=== PATIENT | female | born 1995 | race Hispanic/Latino ===

== ENCOUNTER 2017-03-08 12:53 | Emergency (ER) | payer OTHER ==
[2017-03-08 13:01] VITALS: BP 126/84; PULSE 90; RESP 19; TEMP 98.6; O2SAT 100
[2017-03-08] MEDS ORDERED: Absorbable Gelatin Sponge Size 12-7 ONE (13:24)
--- NOTE | 2017-03-08 13:34 | ED PDOC ---
Upper Extremity Pain/Injury Time Seen by Provider: 03/08/17 13:13 Chief Complaint (Nursing): Finger,Hand,&Wrist Chief Complaint (Provider): Finger, Hand &Wrist History Per: Patient History/Exam Limitations: no limitations Onset/Duration Of Symptoms: Days (x1day (Last night)) Current Symptoms Are (Timing): Still Present Additional Complaint(s): Tiffanie Nielson is a 22 year old female with no past medical history who presents to the ED accompanied by her family with a chief complaint of swelling from a nail bed injury. Associated symptoms include numbness and tingling. Patient reports she slammed her right 3rd digit on a metal door. Denies any active bleeding. Past Medical History Reviewed: Historical Data, Nursing Documentation, Vital Signs Vital Signs: Last Vital Signs Temp 98.6 F 03/08/17 12:58 Pulse 90 03/08/17 12:58 Resp 19 03/08/17 12:58 BP 126/84 03/08/17 12:58 Pulse Ox 100 03/08/17 12:58 - Medical History PMH: No Chronic Diseases - Surgical History Surgical History: No Surg Hx, Tonsillectomy - Family History Family History: States: Unknown Family Hx - Allergies Allergies/Adverse Reactions: Allergies Allergy/AdvReac Type Severity Reaction Status Date / Time No Known Allergies Allergy Verified 03/08/17 12:58 Review of Systems ROS Statement: Except As Marked, All Systems Reviewed And Found Negative Physical Exam - Reviewed Nursing Documentation Reviewed: Yes Vital Signs Reviewed: Yes - Physical Exam Appears: Positive for: Well, Non-toxic, No Acute Distress Head Exam: Positive for: ATRAUMATIC, NORMAL INSPECTION, NORMOCEPHALIC Skin: Positive for: Normal Color Eye Exam: Positive for: Normal appearance ENT: Positive for: Normal ENT Inspection Neck: Positive for: Normal Cardiovascular/Chest: Positive for: Regular Rate, Rhythm. Negative for: Murmur , Tachycardia Respiratory: Positive for: Normal Breath Sounds. Negative for: Wheezing, Respiratory Distress Extremity: Positive for: Swelling (Swelling proximal to the phalanx of the right hand on the 3rd digit.), Other (Acrylic nail. Has a bed nail injury) Neurologic/Psych: Positive for: Alert, Oriented - ECG O2 Sat by Pulse Oximetry: 100 (RA) Pulse Ox Interpretation: Normal - Radiology X-Ray: Interpreted by Pr X-Ray Interpretation: No Acute Disease Medical Decision Making Medical Decision Makin: Initial Impression: 22 year old female with a nail bed injury. Initial Plan: * X-ray * Nail removal * 2cc of normal saline * Lidocaine with out epinephrine * gel foam applied to nail advised not to wet nail bed x 2 d Patient was in agreement with nail being removed Scribe Attestation: Documented by Stephany Fuentes acting as a scribe for Shira Gasca PA-C. Provider Scribe Attestation: All medical record entries made by the Scribe were at my direction and personally dictated by me. I have reviewed the chart and agree that the record accurately reflects my personal performance of the history, physical exam, medical decision making, and the department course for this patient. I have also personally directed, reviewed, and agree with the discharge instructions and disposition. Disposition - Clinical Impression Clinical Impression: Nail bed injury - Patient ED Disposition Is Patient to be Admitted: No Counseled Patient/Family Regarding: Studies Performed, Diagnosis, Need For Followup - Disposition Disposition: Routine/Home Disposition Time: 14:01 Condition: STABLE Instructions: Toenail/Fingernail Removal (ED)
--- NOTE | 2017-03-08 13:36 | RAD ---
PROCEDURE: Right Hand Radiographs. HISTORY: trauma attn 3rd digit COMPARISON: None available. FINDINGS: BONES: No acute displaced fracture. JOINTS: No dislocation. SOFT TISSUES: Soft tissue emphysema and swelling involving the distal 3rd phalanx. . No evidence of radiopaque foreign body. OTHER FINDINGS: None. IMPRESSION: Soft tissue emphysema and swelling involving the distal 3rd phalanx. No acute displaced fracture, dislocation, or significant joint effusion identified. If symptoms persist, or if there is continued clinical concern, x-ray follow-up in 7-10 days should be considered.
== END 2017-03-08 13:49 | disposition home or self-care (01) ==
LOC: H.ER 12:53
DX: S67.192A Crushing injury of right middle finger, initial encounter (principal); W23.0XXA Caught, crushed, jammed, or pinched between moving objects, initial encounter